=== PATIENT | female | born 1960 | race Caucasian/White ===

== ENCOUNTER → 2017-06-16 | Outpatient (CLI) | payer BC ==
[~2017-06-16] MED LIST: ADVIN50050 INH; AMT50 PO; ATEN50TA8 PO; FRS/40 PO; INSDGI SC; LANS15CA6 PO; LANS30CA12 PO; LISI-461 PO; MAGNTAB4 PO; NITR1CAP32 PO; NVLGI SQ; PARO1TAB27 PO; PHEN-876 PO; PRED10TA PO; RANI150T85 PO; SYN25 PO; [UNRECOGNIZED DRUG - OTHER] PO; [UNRECOGNIZED DRUG - OTHER] PO; [UNRECOGNIZED DRUG - OTHER] PO
--- NOTE | 2017-06-16 11:43 | DIAGNOSTIC IMAGING REPORT ---
SINUSES MIN 3 VIEWS ROUTINE CLINICAL HISTORY: 57 years-old Female presenting with J32.9 [id number]. TECHNIQUE: 5 views of the sinuses were obtained. COMPARISON: None. FINDINGS: Paranasal sinuses and mastoid air cells clear. Bony nasal septum is midline. Bony orbits intact. Upper cervical spine normal. IMPRESSION: No radiographic evidence of paranasal sinus or mastoid air cell opacification. Electronically signed by: Ge Toledo M.D. 06/16/2017 11:41 AM Dictated Date/Time: 06/16/2017 11:40 AM
== END | disposition home or self-care (01) ==
LOC: C.RAD1850 11:09
PROVIDERS: ATTEND Physician Assistant
DX: J32.9 Chronic sinusitis, unspecified (principal)